=== PATIENT | male | born 1975 | race African-American/Black ===

== ENCOUNTER 2018-02-27 21:24 | Emergency (ER) | payer MEDICAID ==
[~2018-02-27] VITALS: Ht 180.3 cm; Wt 93.0 kg
[2018-02-28] MEDS ORDERED: ACETAMINOPHEN 325MG TABLET PO ONE (00:30)
[2018-02-28 03:10] VITALS: BP 125/75
== END 2018-02-28 03:12 | disposition home or self-care (01) ==
LOC: ER 21:25
DX: S09.90XA Unspecified injury of head, initial encounter (principal); S59.911A Unspecified injury of right forearm, initial encounter; M54.2 Cervicalgia; M54.9 Dorsalgia, unspecified; W10.8XXA Fall (on) (from) other stairs and steps, initial encounter; Y93.89 Activity, other specified; Y92.89 Other specified places as the place of occurrence of the external cause; Y99.8 Other external cause status
CPT/HCPCS: 70450; 72070; 72100; 72125; 73090; 82962; 93005; 99284

== ENCOUNTER 2020-06-18 11:23 | Emergency (ER) | payer MEDICAID ==
[~2020-06-18] VITALS: Ht 177.8 cm; Wt 96.0 kg
[2020-06-18] MEDS ORDERED: MORPHINE SULFATE 4 MG/ML CPJ (NOT FOR IM USE) IV STA (12:00)
[2020-06-18 12:38] LABS: EOSINOPHILS % 6.5 % (0.0-5.0); HEMATOCRIT. 44.2 % (42.0-52.0); HEMOGLOBIN. 14.7 g/dL (14.0-18.0); LYMPHOCYTES % 38.4 % (20.0-50.0); MEAN CORPUSCULAR HEMOGLOBIN 29.1 pg (28.0-32.0); MEAN CORPUSCULAR VOLUME 87.4 fL (80.0-94.0); MEAN PLATELET VOLUME 9.1 fl (7.4-10.4); NEUTROPHILS % 45.1 % (40.0-76.0); PLATELET 147 x1000/uL (130-400); RED BLOOD CELL COUNT 5.06 mill/uL (4.7-6.1); RED CELL DISTRIBUTION WIDTH 13.7 % (11.6-14.6)
[2020-06-18 12:46] LABS: CHLORIDE 106 mEq/L (98-107); CLARITY URINE CLEAR (CLEAR); COLOR URINE YELLOW (YELLOW); KETONES URINE NEGATIVE (NEGATIVE); LEUKOCYTE ESTERASE URINE 3+ (NEGATIVE); NITRITE URINE NEGATIVE (NEGATIVE); OCCULT BLOOD URINE NEGATIVE (NEGATIVE); PH URINE 7.5 (4.5-8.0); PROTEIN URINE NEGATIVE (NEGATIVE); SPECIFIC GRAVITY URINE 1.014 (1.005-1.030); UROBILINOGEN URINE 0.2 E.U./dL (0.2-1.0)
[2020-06-18 12:57] LABS: PROTHROMBIN TIME 10.8 sec (9.6-11.0)
[2020-06-18 14:32] VITALS: BP 133/91
== END 2020-06-18 14:32 | disposition home or self-care (01) ==
LOC: ER 11:23
DX: N39.0 Urinary tract infection, site not specified (principal); Z87.828 Personal history of other (healed) physical injury and trauma; Z98.890 Other specified postprocedural states; Z87.442 Personal history of urinary calculi
CPT/HCPCS: 36415; 74176; 80053; 81003; 83690; 85025; 85610; 87086; 93005; 96374; 99285; J2270

== ENCOUNTER 2021-01-30 14:37 | Emergency (ER) | payer MEDICAID ==
[~2021-01-30] VITALS: Ht 177.8 cm; Wt 70.0 kg
[2021-01-30 15:41] VITALS: BP 178/104
[2021-01-30 17:42] LABS: CLARITY URINE CLEAR (CLEAR); COLOR URINE YELLOW (YELLOW); KETONES URINE NEGATIVE (NEGATIVE); LEUKOCYTE ESTERASE URINE 2+ (NEGATIVE); NITRITE URINE NEGATIVE (NEGATIVE); OCCULT BLOOD URINE NEGATIVE (NEGATIVE); PH URINE 6.5 (4.5-8.0); PROTEIN URINE NEGATIVE (NEGATIVE); SPECIFIC GRAVITY URINE 1.019 (1.005-1.030); UROBILINOGEN URINE 0.2 E.U./dL (0.2-1.0)
[2021-01-30] MEDS ORDERED: DOXY100C2 MT (17:58)
[2021-01-30] MEDS ORDERED: CEFP200T13 MT (17:59)
[2021-01-30] MEDS ORDERED: CEFTRIAXONE SODIUM 500 MG/VIAL IM ONE (18:00)
[2021-01-30] MEDS ORDERED: LIDOCAINE HCL 1% 20ML VIAL (Pyxis) INJ INFIL ONE (18:00)
[2021-02-02 05:11] LABS: NEISSERIA GONORRHOEAE NAA Negative (Negative)
== END 2021-01-30 18:30 | disposition home or self-care (01) ==
LOC: ER 14:37
DX: N39.0 Urinary tract infection, site not specified (principal); A64 Unspecified sexually transmitted disease; Z98.890 Other specified postprocedural states
CPT/HCPCS: 81003; 87086; 87491; 87591; 96372; 99283; J0696; J3490

== ENCOUNTER 2022-05-08 08:57 | Emergency (ER) | payer MEDICAID ==
[~2022-05-08] VITALS: Ht 167.6 cm; Wt 79.0 kg
[~2022-05-08 08:57] MED LIST: CEFP200T13 MT; DOXY100C5 MT
[2022-05-08] MEDS ORDERED: IBUPROFEN 600MG TABLET PO STA (11:01)
[2022-05-08 12:30] VITALS: BP 162/112
[2022-05-08 12:46] LABS: CLARITY URINE CLEAR (CLEAR); COLOR URINE YELLOW (YELLOW); KETONES URINE NEGATIVE (NEGATIVE); LEUKOCYTE ESTERASE URINE NEGATIVE (NEGATIVE); NITRITE URINE NEGATIVE (NEGATIVE); OCCULT BLOOD URINE NEGATIVE (NEGATIVE); PROTEIN URINE NEGATIVE (NEGATIVE); SPECIFIC GRAVITY URINE 1.014 (1.005-1.030); UROBILINOGEN URINE 0.2 E.U./dL (0.2-1.0)
[2022-05-08] MEDS ORDERED: IBUP-2029 MT (13:31)
[2022-05-08] MEDS ORDERED: LEVO500T90 MT (13:31)
== END 2022-05-08 14:03 | disposition home or self-care (01) ==
LOC: ER 08:57
DX: N45.1 Epididymitis (principal)
CPT/HCPCS: 76870; 81003; 93976; 99284

== ENCOUNTER 2022-11-03 15:44 | Emergency (ER) | payer MEDICAID ==
[~2022-11-03] VITALS: Ht 177.8 cm; Wt 98.0 kg
[~2022-11-03 15:44] MED LIST changes: +IBUP-2029 MT; +LEVO-65 MT
[2022-11-03 16:04] VITALS: BP 149/104
[2022-11-03] MEDS ORDERED: METH-653 MT (19:29)
== END 2022-11-03 20:00 | disposition home or self-care (01) ==
LOC: ER 15:53
DX: S13.8XXA Sprain of joints and ligaments of other parts of neck, initial encounter (principal); S16.1XXA Strain of muscle, fascia and tendon at neck level, initial encounter; I10 Essential (primary) hypertension; Z87.828 Personal history of other (healed) physical injury and trauma; Z98.890 Other specified postprocedural states; X58.XXXA Exposure to other specified factors, initial encounter; Y93.89 Activity, other specified; Y92.018 Other place in single-family (private) house as the place of occurrence of the external cause
CPT/HCPCS: 99283

== ENCOUNTER 2022-11-09 15:20 | Emergency (ER) | payer MEDICAID ==
[~2022-11-09] VITALS: Ht 180.3 cm; Wt 98.0 kg
[~2022-11-09 15:20] MED LIST changes: +METH-653 MT
[2022-11-09 15:27] VITALS: BP 171/111
[2022-11-09] MEDS ORDERED: CEFTRIAXONE SODIUM 500 MG/VIAL IM ONE (16:15)
[2022-11-09] MEDS ORDERED: DOXY100T2 MT (16:18)
[2022-11-09 17:10] LABS: CLARITY URINE CLOUDY (CLEAR); COLOR URINE YELLOW (YELLOW); KETONES URINE NEGATIVE (NEGATIVE); LEUKOCYTE ESTERASE URINE 3+ (NEGATIVE); NITRITE URINE NEGATIVE (NEGATIVE); OCCULT BLOOD URINE 1+ (NEGATIVE); PH URINE 5.5 (4.5-8.0); PROTEIN URINE NEGATIVE (NEGATIVE); SPECIFIC GRAVITY URINE 1.022 (1.005-1.030); UROBILINOGEN URINE 0.2 E.U./dL (0.2-1.0)
[2022-11-12 04:11] LABS: NEISSERIA GONORRHOEAE NAA Negative (Negative)
== END 2022-11-09 16:44 | disposition home or self-care (01) ==
LOC: ER 15:20
DX: A54.9 Gonococcal infection, unspecified (principal); A74.9 Chlamydial infection, unspecified; I10 Essential (primary) hypertension; Z79.899 Other long term (current) drug therapy
CPT/HCPCS: 81003; 87086; 87491; 87591; 96372; 99283; J0696

== ENCOUNTER 2023-09-13 04:19 | Emergency (ER) | payer MEDICAID ==
[~2023-09-13] VITALS: Ht 177.8 cm; Wt 98.0 kg
[~2023-09-13 04:19] MED LIST changes: +DOXY100T2 MT
[2023-09-13 04:24] VITALS: TEMP 98.8; O2SAT 98
[2023-09-13] MEDS ORDERED: ACETAMINOPHEN 325MG TABLET PO ONE (04:30)
[2023-09-13] MEDS ORDERED: METOCLOPRAMIDE HCL 10MG/2ML VIAL IV ONE (04:30)
[2023-09-13 04:48] LABS: BASOPHILS % 0.6 % (0.0-2.0); EOSINOPHILS % 2.3 % (0.0-5.0); HEMATOCRIT. 46.3 % (42.0-52.0); HEMOGLOBIN. 15.3 g/dL (14.0-18.0); LYMPHOCYTES % 50.6 % (20.0-50.0); MEAN CORPUSCULAR HEMOGLOBIN 28.7 pg (28.0-32.0); MONOCYTES % 9.6 % (2.0-8.0); NEUTROPHILS % 36.9 % (40.0-76.0); PLATELET 158 x1000/uL (130-400); RED BLOOD CELL COUNT 5.32 mill/uL (4.7-6.1); RED CELL DISTRIBUTION WIDTH 13.8 % (11.6-14.6); WHITE BLOOD COUNT 4.8 x1000/uL (4.5-11.0)
[2023-09-13 04:58] LABS: CALCIUM 8.9 mg/dL (8.7-10.4); CARBON DIOXIDE 22 mEq/L (21-32); CHLORIDE 107 mEq/L (98-107); CREATININE 1.2 mg/dL (0.6-1.3); GLUCOSE 147 mg/dL (70-105); POTASSIUM 3.5 mEq/L (3.5-5.1); PROTHROMBIN TIME 10.8 sec (9.6-11.0); SODIUM 140 mEq/L (136-145); UREA NITROGEN BLOOD 11 mg/dL (9-23)
[2023-09-13] MEDS ORDERED: METOCLOPRAMIDE HCL 10MG TABLET PO ONE (07:00)
[2023-09-13] MEDS ORDERED: AMLODIPINE 5MG TABLET PO ONE (07:00)
[2023-09-13 09:00] VITALS: BP 175/126; PULSE 77; RESP 17
[2023-09-13] MEDS ORDERED: AMLO5TAB4 MT (09:44)
[2023-09-14] MEDS ORDERED: METO-293 MT (01:43)
[2023-09-14] MEDS ORDERED: ACET-2708 MT (01:43)
[2023-09-14] MEDS ORDERED: AMLO5TAB88 MT (01:43)
== END 2023-09-13 12:06 | disposition home or self-care (01) ==
LOC: ER 04:19
DX: R51.9 Headache, unspecified (principal); I10 Essential (primary) hypertension; Z98.890 Other specified postprocedural states
CPT/HCPCS: 36415; 80048; 85025; 93005; 99284; J8597

== ENCOUNTER 2023-09-13 19:50 | Emergency (ER) | payer MEDICAID ==
[~2023-09-13] VITALS: Ht 177.8 cm; Wt 80.0 kg
[~2023-09-13 19:50] MED LIST changes: +AMLO5TAB4 MT
[2023-09-13 20:08] VITALS: BP 191/120; PULSE 54; RESP 16; TEMP 98.5; O2SAT 98
[2023-09-13] MEDS ORDERED: KETOROLAC 30MG/ML VIAL IV STA (20:23)
[2023-09-13] MEDS ORDERED: CLONIDINE 0.1MG TABLET PO ONE (20:30)
[2023-09-13] MEDS ORDERED: DIPHENHYDRAMINE 50MG/ML VIAL IV ONE (20:30)
[2023-09-13] MEDS ORDERED: METOCLOPRAMIDE HCL 10MG/2ML VIAL IV ONE (20:30)
[2023-09-13] MEDS ORDERED: SODIUM CHLORIDE 0.9% 1,000 ML IV ONE (20:30)
[2023-09-13] MEDS ORDERED: AMLODIPINE 5MG TABLET PO ONE (22:30)
[2023-09-13 23:23] LABS: BASOPHILS % 0.3 % (0.0-2.0); EOSINOPHILS % 0.1 % (0.0-5.0); HEMATOCRIT. 48.4 % (42.0-52.0); HEMOGLOBIN. 15.8 g/dL (14.0-18.0); LYMPHOCYTES % 12.7 % (20.0-50.0); MEAN CORPUSCULAR HEMOGLOBIN 28.5 pg (28.0-32.0); MEAN CORPUSCULAR HGB CONC 32.7 g/dL (31.0-37.0); MEAN CORPUSCULAR VOLUME 87.2 fL (80.0-94.0); MEAN PLATELET VOLUME 8.8 fl (7.4-10.4); MONOCYTES % 5.4 % (2.0-8.0); NEUTROPHILS % 81.5 % (40.0-76.0); PLATELET 175 x1000/uL (130-400); RED BLOOD CELL COUNT 5.55 mill/uL (4.7-6.1); WHITE BLOOD COUNT 5.5 x1000/uL (4.5-11.0)
[2023-09-13 23:40] LABS: ALANINE AMINOTRANSFERASE 28 IU/L (10-49); ALBUMIN 4.5 g/dL (3.2-4.8); ASPARTATE AMINOTRANSFERASE 19 IU/L (<34); BILIRUBIN TOTAL 0.6 mg/dL (0.1-1.0); CALCIUM 9.4 mg/dL (8.7-10.4); CARBON DIOXIDE 28 mEq/L (21-32); CHLORIDE 105 mEq/L (98-107); CREATININE 1.1 mg/dL (0.6-1.3); GLUCOSE 111 mg/dL (70-105); POTASSIUM 3.8 mEq/L (3.5-5.1); PROTEIN TOTAL 7.2 g/dL (6.0-8.3); SODIUM 140 mEq/L (136-145); TROPONIN I HIGH SENSITIVITY 6 ng/L (3.0-53); UREA NITROGEN BLOOD 8 mg/dL (9-23)
[2023-09-13] MEDS ORDERED: METOCLOPRAMIDE HCL 10MG/2ML VIAL IV NR (23:45)
[2023-09-13] MEDS ORDERED: KETOROLAC 30MG/ML VIAL IV NR (23:45)
[2023-09-13] MEDS ORDERED: DIPHENHYDRAMINE 50MG/ML VIAL IV NR (23:45)
[2023-09-13] MEDS ORDERED: CLONIDINE 0.1MG TABLET PO NR (23:45)
[2023-09-14] MEDS ORDERED: DEXAMETHASONE 10 MG/ML VIAL IV NR (00:15)
[2023-09-14] MEDS ORDERED: ACET-2708 MT (01:43)
[2023-09-14] MEDS ORDERED: AMLO5TAB88 MT (01:43)
[2023-09-14] MEDS ORDERED: METO-293 MT (01:43)
== END 2023-09-14 08:48 | disposition home or self-care (01) ==
LOC: ER 19:50
DX: G43.909 Migraine, unspecified, not intractable, without status migrainosus (principal); I10 Essential (primary) hypertension; Z79.899 Other long term (current) drug therapy
CPT/HCPCS: 99285; 71045; 80053; 85025; 84484; 36415; 93005; 70450; J1200; J1885; J2765; J7030

== ENCOUNTER 2024-03-16 08:35 | Emergency (ER) | payer MEDICAID ==
[~2024-03-16] VITALS: Ht 175.3 cm; Wt 85.0 kg
[~2024-03-16 08:35] MED LIST changes: +ACET-2708 MT; +AMLO5TAB88 MT; +METO-293 MT
[2024-03-16 08:40] VITALS: O2SAT 97
[2024-03-16] MEDS: LIDOCAINE HCL 1% 20ML VIAL INFIL ONE (09:20)
[2024-03-16] MEDS: CEFTRIAXONE SODIUM 500MG VIAL IM ONE (09:20)
[2024-03-16 09:29] LABS: CLARITY URINE CLOUDY (CLEAR); COLOR URINE YELLOW (YELLOW); GLUCOSE URINE NEGATIVE (NEGATIVE); KETONES URINE NEGATIVE (NEGATIVE); LEUKOCYTE ESTERASE URINE 3+ (NEGATIVE); NITRITE URINE POSITIVE (NEGATIVE); OCCULT BLOOD URINE 3+ (NEGATIVE); PROTEIN URINE TRACE (NEGATIVE); SPECIFIC GRAVITY URINE 1.021 (1.005-1.030)
[2024-03-16] MEDS ORDERED: CEPH500C2 MT (09:39)
[2024-03-16] MEDS ORDERED: DOXY100C5 MT (09:39)
[2024-03-16 09:44] VITALS: BP 173/100; PULSE 66; RESP 18; TEMP 98.6
[2024-03-16 09:51] LABS: SQUAMOUS EPITHELIAL CELL URINE RARE /lpf (RARE/1+)
[2024-03-16 09:52] LABS: BACTERIA URINE 3+; WBC URINE TNTC /hpf (0-2)
[2024-03-16 09:54] LABS: TRICHOMONAS URINE FEW
[2024-03-16] MEDS ORDERED: METR-167 PO (10:05)
[2024-03-18 04:08] LABS: CHLAMYDIA TRACHOMATIS NAA Negative (Negative); NEISSERIA GONORRHOEAE NAA Negative (Negative)
== END 2024-03-16 09:50 | disposition home or self-care (01) ==
LOC: ER 08:35
DX: N39.0 Urinary tract infection, site not specified (principal); I10 Essential (primary) hypertension; Z11.3 Encounter for screening for infections with a predominantly sexual mode of transmission; Z79.899 Other long term (current) drug therapy; Z98.890 Other specified postprocedural states
CPT/HCPCS: 87491; 87591; 81003; 87086; 96372; 99283; J0696; J3490; Z7610

== ENCOUNTER 2024-08-13 18:10 | Emergency (ER) | payer MEDICAID ==
[~2024-08-13] VITALS: Ht 177.8 cm; Wt 102.0 kg
[~2024-08-13 18:10] MED LIST changes: -AMLO5TAB4 MT; +AMLO5TAB5 MT; +CEPH500C2 MT; +METR-167 PO
[2024-08-13 18:25] VITALS: O2SAT 99
[2024-08-13 18:52] LABS: CLARITY URINE CLEAR (CLEAR); COLOR URINE YELLOW (YELLOW); GLUCOSE URINE NEGATIVE (NEGATIVE); KETONES URINE NEGATIVE (NEGATIVE); LEUKOCYTE ESTERASE URINE 1+ (NEGATIVE); NITRITE URINE NEGATIVE (NEGATIVE); OCCULT BLOOD URINE 2+ (NEGATIVE); PROTEIN URINE 2+ (NEGATIVE); SPECIFIC GRAVITY URINE 1.033 (1.005-1.030)
[2024-08-13 19:07] LABS: BACTERIA URINE 1+; SQUAMOUS EPITHELIAL CELL URINE FEW /lpf (RARE/1+)
[2024-08-13 19:08] LABS: RBC URINE 15-25 /hpf (0-2)
[2024-08-13] MEDS ORDERED: CEFTRIAXONE SODIUM 500MG VIAL IM ONE (21:30)
[2024-08-13] MEDS ORDERED: DOXY100C5 MT (22:32)
[2024-08-13] MEDS: CEFTRIAXONE SODIUM 500MG VIAL IM NR (23:52)
[2024-08-13 23:56] VITALS: BP 148/89; PULSE 88; RESP 16; TEMP 36.66960; O2SAT 99
[2024-08-15 17:06] LABS: CHLAMYDIA TRACHOMATIS NAA Negative (Negative); NEISSERIA GONORRHOEAE NAA Negative (Negative)
== END 2024-08-14 | disposition home or self-care (01) ==
LOC: ER 18:10
DX: Z11.3 Encounter for screening for infections with a predominantly sexual mode of transmission (principal); I10 Essential (primary) hypertension; Z79.899 Other long term (current) drug therapy
CPT/HCPCS: 99283; 87491; 87591; 81003; 87086; 96372; J0696